=== PATIENT | male | born 1935 | race Two or more races ===

== ENCOUNTER 2017-04-11 13:08 | Inpatient (IN) | payer MEDICARE, MEDICAID ==
[~2017-04-11] VITALS: Ht 170.2 cm; Wt 73.5 kg
[~2017-04-11 13:08] MED LIST: TRAMADOL HCL50 MG ORAL
--- NOTE | 2017-04-11 13:53 | Emergency Room Report ---
History of Present Illness General Chief Complaint: Multiple Trauma/Fall Source: Patient, Family Member Present Illness HPI Patient fell a week ago. He was getting up and he thinks he might have passed out, though he remembers being caught in the sheets. He fell against a dresser. He hit his left flank and lower chest. He has bruising there and has had pain. The pain is 5/10 mainly when he was lifting things or twisting about. He's not taking any medication for this. He denies any cough, hemoptysis, dyspnea, hematuria or change in bowels. He denies fever. No headache. No palpitations, chest pain. Unknown prior cardiac disease. Not taking any medication at this time. BPH. Allergies: Coded Allergies: No Known Allergies (Verified Allergy, Unknown, 01/04/07) Patient History Past Medical History: see triage record Social History: Denies: smoking Social History Narrative with daughter - Reviewed Nursing Documentation: PMH: Agreed, PSxH: Agreed Nursing Documentation-PMH Past Medical History: No History, Except For Hx Hypertension: Yes Review of Systems All Other Systems: negative except mentioned in HPI Physical Exam Vital Signs Date Time Temp Pulse Resp B/P (MAP) Pulse Ox O2 Delivery O2 Flow Rate FiO2 04/11/17 13:19 98.6 60 16 140/72 97 Room Air Sp02 EP Interpretation: reviewed, normal General Appearance: well appearing, no apparent distress, GCS 15 Head: normocephalic, atraumatic Eyes: bilateral eye normal inspection ENT: moist mucus membranes Neck: full range of motion, supple, no bony tend Respiratory: lungs clear, normal breath sounds, other - posterior chest tenderness over site of ecchymoses Cardiovascular #1: other - regularly irregular rhythm Cardiovascular #2: 2+ radial (R) Gastrointestinal: normal inspection, normal bowel sounds, non tender, no mass, non-distended Genitourinary: CVA tenderness (L) Musculoskeletal: back normal - except for area of lateral chest, gait/station normal, normal range of motion Neurologic: alert, oriented x3, grossly normal Psychiatric: mood/affect normal Skin: warm/dry, other - ecchymoses L lower back/lateral ribs Medical Decision Making Diagnostic Impression: Primary Impression: Multiple rib fractures Qualified Codes: S22.42XA - Multiple fractures of ribs, left side, initial encounter for closed fracture Additional Impressions: Pulmonary contusion Qualified Codes: S27.321A - Contusion of lung, unilateral, initial encounter Bigeminy ER Course Patient presents with the left flank bruise after a fall. It's possibly a syncopal episode at that time. He states pain is mainly when he moves about. The patient needs to have evaluation for syncope and in addition to that will have a CT of his chest and abdomen to exclude any renal contusions or fractures. EKG, CT chest abdomen and pelvis will be performed. Also labs will be obtained and urinalysis. Patient declines pain medicine. EKG with bigeminy and no acute changes. The underlying heart rate is 56 with PVCs is 64. CT with fractures ribs 9-12 with pneumonitis L. Discussed with [facility]. Agreed that could stay here (Dr. Rehman). Needs observation for pulmonary contusion and bigemini. Antibiotics begun. Admit tele Dr. Multani. Laboratory Tests Test 04/11/17 14:20 White Blood Count 5.1 K/UL (4.8-10.8) Red Blood Count 3.78 M/UL (4.70-6.10) L Hemoglobin 11.6 G/DL (14.2-18.0) L Hematocrit 35.2 % (42.0-52.0) L Mean Corpuscular Volume 93 FL (80-99) Mean Corpuscular Hemoglobin 30.5 PG (27.0-31.0) Mean Corpuscular Hemoglobin Concent 32.8 G/DL (32.0-36.0) Red Cell Distribution Width 12.9 % (11.6-14.8) Platelet Count 186 K/UL (150-450) Mean Platelet Volume 6.4 FL (6.5-10.1) L Neutrophils (%) (Auto) 51.3 % (45.0-75.0) Lymphocytes (%) (Auto) 31.4 % (20.0-45.0) Monocytes (%) (Auto) 13.4 % (1.0-10.0) H Eosinophils (%) (Auto) 2.5 % (0.0-3.0) Basophils (%) (Auto) 1.5 % (0.0-2.0) Prothrombin Time 11.6 SEC (9.30-11.50) H Prothrombin Time INR 1.1 (0.9-1.1) PTT 28 SEC (23-33) Urine Color Yellow Urine Appearance Clear Urine pH 7 (4.5-8.0) Urine Specific [place] 1.005 (1.005-1.035) Urine Protein Negative (NEGATIVE) Urine Glucose (UA) Negative (NEGATIVE) Urine Ketones Negative (NEGATIVE) Urine Occult Blood Negative (NEGATIVE) Urine Nitrite Negative (NEGATIVE) Urine Bilirubin Negative (NEGATIVE) Urine Urobilinogen Normal MG/DL (0.0-1.0) Urine Leukocyte Esterase 1+ (NEGATIVE) H Urine RBC 0-2 /HPF (0 - 0) H Urine WBC 2-4 /HPF (0 - 0) Urine Squamous Epithelial Cells Occasional /LPF Urine Bacteria Occasional /HPF (NONE) Sodium Level 132 mEQ/L (135-145) L Potassium Level 4.5 mEQ/L (3.4-4.9) Chloride Level 96 mEQ/L (98-107) L Carbon Dioxide Level 26 mEQ/L (20-30) Anion Gap 10 (5-15) Blood Urea Nitrogen 25 mg/dL (7-23) H Creatinine 1.2 mg/dL (0.7-1.2) Estimate Glomerular Filtration Rate mL/min (>60) Glucose Level 95 mg/dL (74-106) Calcium Level 8.7 mg/dL (8.6-10.2) Total Bilirubin 0.6 mg/dL (0.0-1.2) Aspartate Amino Transferase (AST) 17 U/L (5-40) Alanine Aminotransferase (ALT) 11 U/L (3-41) Alkaline Phosphatase 58 U/L (40-129) Total Protein 6.4 g/dL (6.6-8.7) L Albumin 3.8 g/dL (3.5-5.2) Globulin 2.6 g/dL Albumin/Globulin Ratio 1.4 (1.0-2.7) EKG Diagnostic Results Rate: bradycardiac Rhythm: other - bigemini - rate 64 ST Segments: other Rhythm Strip Diag. Results EP Interpretation: yes Rhythm: other Other Impression Bigeminy, rate of 64, no hyperacute changes. CT/MRI/US Diagnostic Results CT/MRI/US Diagnostic Results : Imaging Test Ordered: chest abd pelvis Impression fx rib 9-12 and pneumonitis vs contusion Status: improved Disposition: ADMITTED INPATIENT Condition: Serious Tyrone Oliver M.D. Apr 11, 2017 13:53
[2017-04-11 14:38] LABS: APPEARANCE,URINE CLEAR; KETONES,URINE NEGATIVE (NEGATIVE); LEUKOCYTE ESTERASE ,URINE 1+ (NEGATIVE); NITRITE,URINE NEGATIVE (NEGATIVE); PH,URINE 7 (4.5-8.0); PROTEIN,URINE NEGATIVE (NEGATIVE); UROBILINOGEN,URINE NORMAL MG/DL (0.0-1.0)
[2017-04-11 14:41] LABS: BASOPHILS % (AUTO) 1.5 % (0.0-2.0); EOSINOPHILS % (AUTO) 2.5 % (0.0-3.0); LYMPHOCYTES % (AUTO) 31.4 % (20.0-45.0); MEAN CORPUSCULAR HEMOGLOBIN 30.5 PG (27.0-31.0); MEAN CORPUSCULAR HGB CONC 32.8 G/DL (32.0-36.0); MEAN CORPUSCULAR VOLUME 93 FL (80-99); MEAN PLATELET VOLUME 6.4 FL (6.5-10.1); MONOCYTES % (AUTO) 13.4 % (1.0-10.0); NEUTROPHILS % (AUTO) 51.3 % (45.0-75.0); PLATELET COUNT 186 K/UL (150-450); RED BLOOD COUNT 3.78 M/UL (4.70-6.10); RED CELL DISTRIBUTION WIDTH 12.9 % (11.6-14.8); WHITE BLOOD COUNT 5.1 K/UL (4.8-10.8)
[2017-04-11 14:45] VITALS: BP 163/62
[2017-04-11 14:47] LABS: INR 1.1 (0.9-1.1); PROTHROMBIN TIME 11.6 SEC (9.30-11.50)
[2017-04-11 14:48] LABS: BACTERIA,URINE OCCASIONAL /HPF; RBC,URINE 0-2 /HPF (0 - 0); SQUAMOUS EPITHELIAL CELL,UR OCCASIONAL /LPF (NONE/OCC)
[2017-04-11 14:51] LABS: ALANINE AMINOTRANSFERASE 11 U/L (3-41); ALBUMIN/GLOBULIN RATIO 1.4 (1.0-2.7); ANION GAP 10 (5-15); ASPARTATE AMINO TRANSFERASE 17 U/L (5-40); CALCIUM 8.7 mg/dL (8.6-10.2); CARBON DIOXIDE 26 mEQ/L (20-30); CHLORIDE 96 mEQ/L (98-107); CREATININE 1.2 mg/dL (0.7-1.2); HEMOLYSIS 5; POTASSIUM 4.5 mEQ/L (3.4-4.9); SODIUM 132 mEQ/L (135-145); TOTAL PROTEIN 6.4 g/dL (6.6-8.7)
[2017-04-11 17:04] VITALS: BP 183/66
[2017-04-11] MEDS ORDERED: ASPIR 8181 MG ORAL (17:34)
[2017-04-11] MEDS ORDERED: OMEGA 3 FISH O1 EAC1 PO (17:34)
[2017-04-11] MEDS ORDERED: Mylanta II UD 30ml ORAL PRN (18:15)
[2017-04-11] MEDS ORDERED: Nitroglycerin Subl 0.4mg tab (Bottle Of 25) SL PRN (18:15)
[2017-04-11] MEDS ORDERED: LORazepam Inj 2mg/ml 1ml IV PRN (18:15)
[2017-04-11] MEDS ORDERED: Morphine Sulfate 2mg/ml Inj IVP PRN (18:15)
[2017-04-11] MEDS ORDERED: Miralax 17gm pkt ORAL PRN (18:15)
[2017-04-11] MEDS ORDERED: DuoNeb 0.5-3(2.5)mg/3ml neb HHN PRN (18:15)
[2017-04-11 19:32] VITALS: BP 144/49
[2017-04-11 20:15] VITALS: BP 147/75
[2017-04-11] MEDS: Heparin 5000 units/ml inj SUBQ SCH (22:05)
[2017-04-12 00:24] VITALS: BP 155/66
[2017-04-12 03:56] VITALS: BP 142/69
[2017-04-12 07:07] LABS: BASOPHILS % (AUTO) 1.2 % (0.0-2.0); EOSINOPHILS % (AUTO) 3.3 % (0.0-3.0); LYMPHOCYTES % (AUTO) 24.9 % (20.0-45.0); MEAN CORPUSCULAR HEMOGLOBIN 31.9 PG (27.0-31.0); MEAN CORPUSCULAR HGB CONC 34.3 G/DL (32.0-36.0); MEAN CORPUSCULAR VOLUME 93 FL (80-99); MEAN PLATELET VOLUME 7.7 FL (6.5-10.1); NEUTROPHILS % (AUTO) 59.7 % (45.0-75.0); PLATELET COUNT 178 K/UL (150-450); RED BLOOD COUNT 4.01 M/UL (4.70-6.10); RED CELL DISTRIBUTION WIDTH 12.6 % (11.6-14.8); WHITE BLOOD COUNT 5.3 K/UL (4.8-10.8)
[2017-04-12 07:17] LABS: INR 1.1 (0.9-1.1); PROTHROMBIN TIME 11.7 SEC (9.30-11.50)
[2017-04-12 07:35] LABS: ALANINE AMINOTRANSFERASE 10 U/L (3-41); ALBUMIN/GLOBULIN RATIO 1.5 (1.0-2.7); ANION GAP 10 (5-15); ASPARTATE AMINO TRANSFERASE 18 U/L (5-40); CALCIUM 9.2 mg/dL (8.6-10.2); CARBON DIOXIDE 28 mEQ/L (20-30); CHLORIDE 96 mEQ/L (98-107); CHOLESTEROL 193 mg/dL (< 200); CHOLESTEROL/HDL RATIO 2.5 (3.3-4.4); HEMOLYSIS 6; LDL CHOLESTEROL (CALC.) 108 mg/dL (60-99); POTASSIUM 4.3 mEQ/L (3.4-4.9); SODIUM 134 mEQ/L (135-145); TOTAL PROTEIN 6.8 g/dL (6.6-8.7)
[2017-04-12 07:59] VITALS: BP 153/80
[2017-04-12] MEDS: Heparin 5000 units/ml inj SUBQ SCH ×2 (08:59→21:25)
--- NOTE | 2017-04-12 11:03 | Diagnostic Imaging Report ---
Indication: Chest and abdominal pain. Trauma to the chest and abdomen. Technique: Continuous helical transaxial imaging of the chest, abdomen and pelvis was obtained from the lung bases to the pubic symphysis during intravenous contrast administration. Multiple phases of enhancement obtained. Coronal 2-D reformats were also obtained. Study obtained in a Siemens sensation [address] Total Dose length Product (DLP): [address] Dose Index Volume (CTDIvol): 0.15, 15.27, 13.69 mGy Comparison: None Findings: There are multiple rib fractures on the left side involving the 9 through 12 ribs posteriorly. There is a small amount of chest wall swelling. There is mild posterior basilar atelectasis. There is no consolidation, fluid or blood collection within the pleural space or pneumothorax. The lungs are clear. Aorta shows mild mural calcification. The mediastinum is clear. There is no evidence of a pericardial effusion. Small hiatal hernia noted. Solid organs including the liver, spleen, kidneys, pancreas appear unremarkable. There is no free fluid. There is no hydronephrosis. The bladder is mildly distended. The patient has likely had a previous transurethral prostate resection given the focal defect centrally within the prostate gland. Hypertrophied facets demonstrated within the thoracic and lumbar spine. Bones appear osteopenic. Impression: Multiple left-sided rib fractures. No deeper injury associated with this. Mild posterior basilar atelectasis Chronic disease Osteopenia Status post TURP. [facility] has communicated the preliminary results to the Emergency Department. Their findings are largely concordant with this report. The CT scanner at [facility] is accredited by the [employer] and the scans are performed using dose optimization techniques as appropriate to a performed exam including Automatic Exposure control.
[2017-04-12 11:26] VITALS: BP 143/55
--- NOTE | 2017-04-12 12:04 | History and Physical ---
History of Present Illness General Date patient seen: Apr 11, 2017 Reason for Hospitalization: Multiple Trauma/Fall Present Illness HPI 81 year old male with hx bph, brought in by paramedics with CC of intractable chest pain. He fell a week ago. He was getting up and he thinks he might have passed out. He fell against a dresser. He says bruising there and has had pain. The pain is 5/10 mealy when he was lifting things or twisting about.. He denies any cough, hemoptysis, dyspnea, hematuria or change in bowels. He was diagnosed to have multiple rib fracture. He also had arrhythmias on the monitor and admitted to telemetry for further work up. Allergies: Coded Allergies: No Known Allergies (Verified Allergy, Unknown, 01/04/07) Medication History Scheduled Aspirin* (Aspir 81*), 81 MG ORAL DAILY, (Reported) Parrish-3 Fatty Acids/Fish Oil (Parrish 3 Fish Oil Softgel), 1 EACH PO DAILY, ( Reported) Scheduled PRN Tramadol Hcl* (Ultram*), 50 MG ORAL Q6H PRN for For Pain Patient History Healthcare decision maker Resuscitation status Full Code Advanced Directive on File No Past Medical/Surgical History Past Medical/Surgical History: (1) BPH (benign prostatic hyperplasia) (2) S/P TURP Review of Systems All Other Systems: negative except mentioned in HPI Physical Exam General Appearance: WD/WN Lines, tubes and drains: peripheral Neck: non-tender, normal alignment Respiratory/Chest: chest wall non-tender, lungs clear, normal breath sounds Breasts: no masses Cardiovascular/Chest: normal peripheral pulses Abdomen: normal bowel sounds, non tender Genitourinary/Rectal: normal genital exam, normal rectal exam Extremities: normal range of motion, non-tender Skin Exam: normal pigmentation Neurologic: fashion coordinator II-XII grossly normal Lymphatic: anterior cervical Last 24 Hour Vital Signs Date Time Temp Pulse Resp B/P (MAP) Pulse Ox O2 Delivery O2 Flow Rate FiO2 04/12/17 11:26 97.9 58 20 143/55 100 Room Air 04/12/17 07:59 97.7 58 20 153/80 100 Room Air 04/12/17 07:40 61 16 Room Air 04/12/17 03:58 58 04/12/17 03:56 96.6 55 20 142/69 98 Room Air 04/12/17 00:24 97.3 59 16 155/66 100 Room Air 04/11/17 23:54 58 04/11/17 20:19 66 16 Room Air 04/11/17 20:15 97.3 63 20 147/75 98 Room Air 04/11/17 19:36 98.6 67 16 144/49 99 Room Air 67 04/11/17 19:32 98.6 67 16 144/49 99 Room Air 04/11/17 17:04 98.6 73 10 183/66 98 Room Air 04/11/17 14:45 98.6 64 22 163/62 98 Room Air 04/11/17 13:19 98.6 60 16 140/72 97 Room Air Intake and Output 04/12/17 04/13/17 19:00 07:00 Intake Total 240 ml Output Total 350 ml Balance -110 ml Intake Oral 240 ml Output Urine Total 350 ml Laboratory Tests Test 04/11/17 14:20 04/12/17 06:30 White Blood Count 5.1 K/UL (4.8-10.8) 5.3 K/UL (4.8-10.8) Red Blood Count 3.78 M/UL (4.70-6.10) L 4.01 M/UL (4.70-6.10) L Hemoglobin 11.6 G/DL (14.2-18.0) L 12.8 G/DL (14.2-18.0) L Hematocrit 35.2 % (42.0-52.0) L 37.3 % (42.0-52.0) L Mean Corpuscular Volume 93 FL (80-99) 93 FL (80-99) Mean Corpuscular Hemoglobin 30.5 PG (27.0-31.0) 31.9 PG (27.0-31.0) H Mean Corpuscular Hemoglobin Concent 32.8 G/DL (32.0-36.0) 34.3 G/DL (32.0-36.0) Red Cell Distribution Width 12.9 % (11.6-14.8) 12.6 % (11.6-14.8) Platelet Count 186 K/UL (150-450) 178 K/UL (150-450) Mean Platelet Volume 6.4 FL (6.5-10.1) L 7.7 FL (6.5-10.1) Neutrophils (%) (Auto) 51.3 % (45.0-75.0) 59.7 % (45.0-75.0) Lymphocytes (%) (Auto) 31.4 % (20.0-45.0) 24.9 % (20.0-45.0) Monocytes (%) (Auto) 13.4 % (1.0-10.0) H 11.0 % (1.0-10.0) H Eosinophils (%) (Auto) 2.5 % (0.0-3.0) 3.3 % (0.0-3.0) H Basophils (%) (Auto) 1.5 % (0.0-2.0) 1.2 % (0.0-2.0) Prothrombin Time 11.6 SEC (9.30-11.50) H 11.7 SEC (9.30-11.50) H Prothromb Time International Ratio 1.1 (0.9-1.1) 1.1 (0.9-1.1) Activated Partial Thromboplast Time 28 SEC (23-33) 30 SEC (23-33) Urine Color Yellow Urine Appearance Clear Urine pH 7 (4.5-8.0) Urine Specific [place] 1.005 (1.005-1.035) Urine Protein Negative (NEGATIVE) Urine Glucose (UA) Negative (NEGATIVE) Urine Ketones Negative (NEGATIVE) Urine Occult Blood Negative (NEGATIVE) Urine Nitrite Negative (NEGATIVE) Urine Bilirubin Negative (NEGATIVE) Urine Urobilinogen Normal MG/DL (0.0-1.0) Urine Leukocyte Esterase 1+ (NEGATIVE) H Urine RBC 0-2 /HPF (0 - 0) H Urine WBC 2-4 /HPF (0 - 0) Urine Squamous Epithelial Cells Occasional /LPF Urine Bacteria Occasional /HPF (NONE) Sodium Level 132 mEQ/L (135-145) L 134 mEQ/L (135-145) L Potassium Level 4.5 mEQ/L (3.4-4.9) 4.3 mEQ/L (3.4-4.9) Chloride Level 96 mEQ/L (98-107) L 96 mEQ/L (98-107) L Carbon Dioxide Level 26 mEQ/L (20-30) 28 mEQ/L (20-30) Anion Gap 10 (5-15) 10 (5-15) Blood Urea Nitrogen 25 mg/dL (7-23) H 19 mg/dL (7-23) Creatinine 1.2 mg/dL (0.7-1.2) 1.0 mg/dL (0.7-1.2) Estimat Glomerular Filtration Rate mL/min (>60) mL/min (>60) Glucose Level 95 mg/dL (74-106) 96 mg/dL (74-106) Calcium Level 8.7 mg/dL (8.6-10.2) 9.2 mg/dL (8.6-10.2) Total Bilirubin 0.6 mg/dL (0.0-1.2) 0.6 mg/dL (0.0-1.2) Aspartate Amino Transf (AST/SGOT) 17 U/L (5-40) 18 U/L (5-40) Alanine Aminotransferase (ALT/SGPT) 11 U/L (3-41) 10 U/L (3-41) Alkaline Phosphatase 58 U/L (40-129) 63 U/L (40-129) Total Protein 6.4 g/dL (6.6-8.7) L 6.8 g/dL (6.6-8.7) Albumin 3.8 g/dL (3.5-5.2) 4.1 g/dL (3.5-5.2) Globulin 2.6 g/dL 2.7 g/dL Albumin/Globulin Ratio 1.4 (1.0-2.7) 1.5 (1.0-2.7) Triglycerides Level 42 mg/dL (< 150) Cholesterol Level 193 mg/dL (< 200) LDL Cholesterol 108 mg/dL (60-99) H HDL Cholesterol 77 mg/dL (> 60) H Cholesterol/HDL Ratio 2.5 (3.3-4.4) L Thyroid Stimulating Hormone (TSH) 3.370 uIU/mL (0.300-4.500) Height (Feet): 5 Height (Inches): 7.00 Weight (Pounds): 162 Medications Current Medications Medications (Trade) Dose Ordered Sig/Tank Route PRN Reason Start Time Stop Time Status Last Admin Dose Admin Acetaminophen (Tylenol) 650 mg Q4H PRN ORAL fever 04/11/17 18:15 05/11/17 18:14 Al Hydroxide/Mg Hydroxide (Mylanta II) 30 ml Q6H PRN ORAL dyspepsia 04/11/17 18:15 05/11/17 18:14 Albuterol/ Ipratropium (DuoNeb 0.5-3(2.5)mg/3ml) 3 ml Q4H PRN HHN Shortness of Breath 04/11/17 18:15 04/16/17 18:14 Clonidine HCl (Catapres) 0.1 mg Q4H PRN ORAL For High Blood Pressure 04/11/17 18:15 05/11/17 18:14 Dextrose (Dextrose 50%) STAT PRN IV Hypoglycemia 04/11/17 18:15 05/11/17 18:14 Heparin Sodium (Porcine) (Heparin 5000 units/ml) 5,000 units EVERY 12 HOURS SUBQ 04/11/17 21:00 05/11/17 20:59 04/12/17 08:59 Lorazepam (Ativan 2mg/ml 1ml) 0.5 mg Q4H PRN IV For Anxiety 04/11/17 18:15 04/18/17 18:14 Morphine Sulfate (Morphine Sulfate) 1 mg Q4H PRN IVP For Pain 7-10 04/11/17 18:15 04/18/17 18:14 Nitroglycerin (Ntg) 0.4 mg Q5M X 3 DOSES PRN SL Prn Chest Pain 04/11/17 18:15 05/11/17 18:14 Ondansetron HCl (Zofran) 4 mg Q6H PRN IVP Nausea & Vomiting 04/11/17 18:15 05/11/17 18:14 Polyethylene Glycol (Miralax) 17 gm HSPRN PRN ORAL Constipation 04/11/17 18:15 05/11/17 18:14 Temazepam (Restoril) 15 mg HSPRN PRN ORAL Insomnia 04/11/17 18:15 04/18/17 18:14 Assessment/Plan Problem List: (1) Acute encephalopathy ICD Codes: G93.40 - Encephalopathy, unspecified SNOMED: 0616350 (2) Arrhythmia ICD Codes: I49.9 - Cardiac arrhythmia, unspecified SNOMED: 520472061 (3) Bigeminy ICD Codes: I49.9 - Cardiac arrhythmia, unspecified SNOMED: 49412703 (4) Multiple rib fractures ICD Codes: S22.49XA - Multiple fractures of ribs, unspecified side, initial encounter for closed fracture SNOMED: 8765103 Qualifiers: Qualified Codes: S22.42XA - Multiple fractures of ribs, left side, initial encounter for closed fracture (5) Pulmonary contusion ICD Codes: S27.329A - Contusion of lung, unspecified, initial encounter SNOMED: 602459544 Qualifiers: Qualified Codes: S27.321A - Contusion of lung, unilateral, initial encounter (6) BPH (benign prostatic hyperplasia) ICD Codes: N40.0 - Benign prostatic hyperplasia without lower urinary tract symptoms SNOMED: 071943941, 223036883 (7) S/P TURP ICD Codes: Z90.79 - Acquired absence of other genital organ(s) SNOMED: 67572134, 785572846 Assessment/Plan echo cardio evaluation doppler of carotid artery pt/ot symptomatic treatment MELANIE SALAS Apr 12, 2017 12:04
--- NOTE | 2017-04-12 12:10 | Pulmonology Progress Note ---
Assessment/Plan Problems: (1) Acute encephalopathy (2) Arrhythmia (3) Bigeminy (4) Multiple rib fractures (5) Pulmonary contusion (6) BPH (benign prostatic hyperplasia) (7) S/P TURP Assessment/Plan feeling better, cardio to see check echo serial ekg tropon neuro evaluation Subjective ROS Limited/Unobtainable: No Constitutional: Reports: no symptoms HEENT: Repors: no symptoms Respiratory: Reports: no symptoms Allergies: Coded Allergies: No Known Allergies (Verified Allergy, Unknown, 01/04/07) Objective Last 24 Hour Vital Signs Date Time Temp Pulse Resp B/P (MAP) Pulse Ox O2 Delivery O2 Flow Rate FiO2 04/12/17 11:26 97.9 58 20 143/55 100 Room Air 04/12/17 07:59 97.7 58 20 153/80 100 Room Air 04/12/17 07:40 61 16 Room Air 04/12/17 03:58 58 04/12/17 03:56 96.6 55 20 142/69 98 Room Air 04/12/17 00:24 97.3 59 16 155/66 100 Room Air 04/11/17 23:54 58 04/11/17 20:19 66 16 Room Air 04/11/17 20:15 97.3 63 20 147/75 98 Room Air 04/11/17 19:36 98.6 67 16 144/49 99 Room Air 67 04/11/17 19:32 98.6 67 16 144/49 99 Room Air 04/11/17 17:04 98.6 73 10 183/66 98 Room Air 04/11/17 14:45 98.6 64 22 163/62 98 Room Air 04/11/17 13:19 98.6 60 16 140/72 97 Room Air Intake and Output 04/12/17 04/13/17 19:00 07:00 Intake Total 240 ml Output Total 350 ml Balance -110 ml Intake Oral 240 ml Output Urine Total 350 ml General Appearance: WD/WN HEENT: normocephalic, mucous membranes moist Respiratory/Chest: lungs clear, normal breath sounds, chest wall tender Cardiovascular: normal rate, regularly irregular Abdomen: normal bowel sounds, soft, non tender Genitourinary: normal external genitalia Skin: no rash Laboratory Tests 04/11/17 14:20: White Blood Count 5.1, Red Blood Count 3.78L, Hemoglobin 11.6L, Hematocrit 35.2L , Mean Corpuscular Volume 93, Mean Corpuscular Hemoglobin 30.5, Mean Corpuscular Hemoglobin Concent 32.8, Red Cell Distribution Width 12.9, Platelet Count 186, Mean Platelet Volume 6.4L, Neutrophils (%) (Auto) 51.3, Lymphocytes ( %) (Auto) 31.4, Monocytes (%) (Auto) 13.4H, Eosinophils (%) (Auto) 2.5, Basophils (%) (Auto) 1.5, Prothrombin Time 11.6H, Prothromb Time International Ratio 1.1, Activated Partial Thromboplast Time 28, Urine Color Yellow, Urine Appearance Clear, Urine pH 7, Urine Specific [place] 1.005, Urine Protein Negative, Urine Glucose (UA) Negative, Urine Ketones Negative, Urine Occult Blood Negative, Urine Nitrite Negative, Urine Bilirubin Negative, Urine Urobilinogen Normal, Urine Leukocyte Esterase 1+H, Urine RBC 0-2H, Urine WBC 2-4 , Urine Squamous Epithelial Cells Occasional, Urine Bacteria Occasional, Sodium Level 132L, Potassium Level 4.5, Chloride Level 96L, Carbon Dioxide Level 26, Anion Gap 10, Blood Urea Nitrogen 25H, Creatinine 1.2, Estimat Glomerular Filtration Rate , Glucose Level 95, Calcium Level 8.7, Total Bilirubin 0.6, Aspartate Amino Transf (AST/SGOT) 17, Alanine Aminotransferase (ALT/SGPT) 11, Alkaline Phosphatase 58, Total Protein 6.4L, Albumin 3.8, Globulin 2.6, Albumin/ Globulin Ratio 1.4 04/12/17 06:30: White Blood Count 5.3, Red Blood Count 4.01L, Hemoglobin 12.8L, Hematocrit 37.3L , Mean Corpuscular Volume 93, Mean Corpuscular Hemoglobin 31.9H, Mean Corpuscular Hemoglobin Concent 34.3, Red Cell Distribution Width 12.6, Platelet Count 178, Mean Platelet Volume 7.7, Neutrophils (%) (Auto) 59.7, Lymphocytes (% ) (Auto) 24.9, Monocytes (%) (Auto) 11.0H, Eosinophils (%) (Auto) 3.3H, Basophils (%) (Auto) 1.2, Prothrombin Time 11.7H, Prothromb Time International Ratio 1.1, Activated Partial Thromboplast Time 30, Sodium Level 134L, Potassium Level 4.3, Chloride Level 96L, Carbon Dioxide Level 28, Anion Gap 10, Blood Urea Nitrogen 19, Creatinine 1.0, Estimat Glomerular Filtration Rate , Glucose Level 96, Calcium Level 9.2, Total Bilirubin 0.6, Aspartate Amino Transf (AST/ SGOT) 18, Alanine Aminotransferase (ALT/SGPT) 10, Alkaline Phosphatase 63, Total Protein 6.8, Albumin 4.1, Globulin 2.7, Albumin/Globulin Ratio 1.5, Triglycerides Level 42, Cholesterol Level 193, LDL Cholesterol 108H, HDL Cholesterol 77H, Cholesterol/HDL Ratio 2.5L, Thyroid Stimulating Hormone (TSH) 3.370 Current Medications Medications (Trade) Dose Ordered Sig/Tank Route PRN Reason Start Time Stop Time Status Last Admin Dose Admin Acetaminophen (Tylenol) 650 mg Q4H PRN ORAL fever 04/11/17 18:15 05/11/17 18:14 Al Hydroxide/Mg Hydroxide (Mylanta II) 30 ml Q6H PRN ORAL dyspepsia 04/11/17 18:15 05/11/17 18:14 Albuterol/ Ipratropium (DuoNeb 0.5-3(2.5)mg/3ml) 3 ml Q4H PRN HHN Shortness of Breath 04/11/17 18:15 04/16/17 18:14 Clonidine HCl (Catapres) 0.1 mg Q4H PRN ORAL For High Blood Pressure 04/11/17 18:15 05/11/17 18:14 Dextrose (Dextrose 50%) STAT PRN IV Hypoglycemia 04/11/17 18:15 05/11/17 18:14 Heparin Sodium (Porcine) (Heparin 5000 units/ml) 5,000 units EVERY 12 HOURS SUBQ 04/11/17 21:00 05/11/17 20:59 04/12/17 08:59 Lorazepam (Ativan 2mg/ml 1ml) 0.5 mg Q4H PRN IV For Anxiety 04/11/17 18:15 04/18/17 18:14 Morphine Sulfate (Morphine Sulfate) 1 mg Q4H PRN IVP For Pain 7-10 04/11/17 18:15 04/18/17 18:14 Nitroglycerin (Ntg) 0.4 mg Q5M X 3 DOSES PRN SL Prn Chest Pain 04/11/17 18:15 05/11/17 18:14 Ondansetron HCl (Zofran) 4 mg Q6H PRN IVP Nausea & Vomiting 04/11/17 18:15 05/11/17 18:14 Polyethylene Glycol (Miralax) 17 gm HSPRN PRN ORAL Constipation 04/11/17 18:15 05/11/17 18:14 Temazepam (Restoril) 15 mg HSPRN PRN ORAL Insomnia 04/11/17 18:15 04/18/17 18:14 MELANIE SALAS Apr 12, 2017 12:10
[2017-04-12 15:42] VITALS: BP 137/53
--- NOTE | 2017-04-12 16:00 | Cardiology Progress Note ---
Assessment/Plan Assessment/Plan [id number] Objective Last 24 Hour Vital Signs Date Time Temp Pulse Resp B/P (MAP) Pulse Ox O2 Delivery O2 Flow Rate FiO2 04/12/17 15:42 96.3 61 20 137/53 98 Room Air 04/12/17 12:00 65 04/12/17 11:26 97.9 58 20 143/55 100 Room Air 04/12/17 07:59 97.7 58 20 153/80 100 Room Air 04/12/17 07:40 61 16 Room Air 04/12/17 03:58 58 04/12/17 03:56 96.6 55 20 142/69 98 Room Air 04/12/17 00:24 97.3 59 16 155/66 100 Room Air 04/11/17 23:54 58 04/11/17 20:19 66 16 Room Air 04/11/17 20:15 97.3 63 20 147/75 98 Room Air 04/11/17 19:36 98.6 67 16 144/49 99 Room Air 67 04/11/17 19:32 98.6 67 16 144/49 99 Room Air 04/11/17 17:04 98.6 73 10 183/66 98 Room Air Intake and Output 04/12/17 04/13/17 19:00 07:00 Intake Total 510 ml Output Total 350 ml Balance 160 ml Intake Oral 510 ml Output Urine Total 350 ml Laboratory Tests Test 04/12/17 06:30 White Blood Count 5.3 K/UL (4.8-10.8) Red Blood Count 4.01 M/UL (4.70-6.10) L Hemoglobin 12.8 G/DL (14.2-18.0) L Hematocrit 37.3 % (42.0-52.0) L Mean Corpuscular Volume 93 FL (80-99) Mean Corpuscular Hemoglobin 31.9 PG (27.0-31.0) H Mean Corpuscular Hemoglobin Concent 34.3 G/DL (32.0-36.0) Red Cell Distribution Width 12.6 % (11.6-14.8) Platelet Count 178 K/UL (150-450) Mean Platelet Volume 7.7 FL (6.5-10.1) Neutrophils (%) (Auto) 59.7 % (45.0-75.0) Lymphocytes (%) (Auto) 24.9 % (20.0-45.0) Monocytes (%) (Auto) 11.0 % (1.0-10.0) H Eosinophils (%) (Auto) 3.3 % (0.0-3.0) H Basophils (%) (Auto) 1.2 % (0.0-2.0) Prothrombin Time 11.7 SEC (9.30-11.50) H Prothromb Time International Ratio 1.1 (0.9-1.1) Activated Partial Thromboplast Time 30 SEC (23-33) Sodium Level 134 mEQ/L (135-145) L Potassium Level 4.3 mEQ/L (3.4-4.9) Chloride Level 96 mEQ/L (98-107) L Carbon Dioxide Level 28 mEQ/L (20-30) Anion Gap 10 (5-15) Blood Urea Nitrogen 19 mg/dL (7-23) Creatinine 1.0 mg/dL (0.7-1.2) Estimat Glomerular Filtration Rate mL/min (>60) Glucose Level 96 mg/dL (74-106) Calcium Level 9.2 mg/dL (8.6-10.2) Total Bilirubin 0.6 mg/dL (0.0-1.2) Aspartate Amino Transf (AST/SGOT) 18 U/L (5-40) Alanine Aminotransferase (ALT/SGPT) 10 U/L (3-41) Alkaline Phosphatase 63 U/L (40-129) Total Protein 6.8 g/dL (6.6-8.7) Albumin 4.1 g/dL (3.5-5.2) Globulin 2.7 g/dL Albumin/Globulin Ratio 1.5 (1.0-2.7) Triglycerides Level 42 mg/dL (< 150) Cholesterol Level 193 mg/dL (< 200) LDL Cholesterol 108 mg/dL (60-99) H HDL Cholesterol 77 mg/dL (> 60) H Cholesterol/HDL Ratio 2.5 (3.3-4.4) L Thyroid Stimulating Hormone (TSH) 3.370 uIU/mL (0.300-4.500) BRANDEE SIERRA Apr 12, 2017 16:00
--- NOTE | 2017-04-12 18:42 | Cardiology Report ---
APPROVED REPORT EXAM: Two-dimensional and M-mode echocardiogram with Doppler and color Doppler. INDICATION LV function M-Mode DIMENSIONS IVSd1.4 (0.7-1.1cm)Left Atrium (MM)3.6 (1.6-4.0cm) LVDd5.4 (3.5-5.6cm)Aortic Root3.6 (2.0-3.7cm) PWd1.3 (0.7-1.1cm)Aortic Cusp Exc.1.9 (1.5-2.0cm) LVDs3.8 (2.5-4.0cm) PWs2.2 cm Technically difficult study due to poor acoustical windows. Normal left ventricular chamber size. Apical hypokinesis otherwise normal wall motion for remaining segments to extent visualized. Left ventricular ejection fraction estimated to be 55 %. Study quality precludes accurate assessment of regional wall motion. Mild left ventricular hypertrophy. Anterior Echo-free space, may be due to pericardial fat or effusion. Mild bi-atrial enlargement. Right ventricular chamber size is within normal limits. Focal aortic valve sclerosis with adequate cusp excursion. Thickened mitral valve leaflets with normal excursion. Mitral annulus and aortic root calcification. Pulmonic valve not well visualized. Normal tricuspid valve structure. IVC at normal size with physiologic collapse. A color flow and spectral Doppler study was performed and revealed: Trace aortic regurgitation. Mild mitral regurgitation. Mitral diastolic velocities suggest reduced left ventricular relaxation c/w mild LV diastolic dysfunction (Grade I). Trace to mild tricuspid regurgitation. Tricuspid systolic velocities suggests peak right ventricular systolic pressure of 34 mmHg.
[2017-04-12 20:00] VITALS: BP 125/61
[2017-04-13] VITALS: BP 135/62
[2017-04-13 04:00] VITALS: BP 126/65
[2017-04-13 07:07] LABS: PROTHROMBIN TIME 10.9 SEC (9.30-11.50)
[2017-04-13 07:17] LABS: MEAN CORPUSCULAR HEMOGLOBIN 31.8 PG (27.0-31.0); MEAN CORPUSCULAR HGB CONC 34.1 G/DL (32.0-36.0); MEAN CORPUSCULAR VOLUME 93 FL (80-99); MEAN PLATELET VOLUME 7.5 FL (6.5-10.1); PLATELET COUNT 179 K/UL (150-450); RED CELL DISTRIBUTION WIDTH 12.8 % (11.6-14.8); WHITE BLOOD COUNT 4.2 K/UL (4.8-10.8)
[2017-04-13 07:35] LABS: LACTATE DEHYDROGENASE 169 U/L (135-230)
[2017-04-13 08:00] VITALS: BP 131/76
[2017-04-13 08:03] LABS: HEMOLYSIS 0; IRON 83 ug/dL (59-158); TOTAL IRON BINDING CAPACITY 248 ug/dL (250-400)
[2017-04-13] MEDS: Heparin 5000 units/ml inj SUBQ SCH (08:20)
--- NOTE | 2017-04-13 08:31 | Consultation ---
DATE OF CONSULTATION: 04/12/2017 CARDIOLOGY CONSULTATION CONSULTING PHYSICIAN: Walter Chapman M.D. REFERRING PHYSICIAN: Jaylon Multani M.D. Attending Physician: 00:15 HISTORY OF PRESENT ILLNESS: This is an elderly gentleman who came into the hospital yesterday. The history is obtained from the patient through his family members who speak Wolof. Apparently, a month ago, he fell at his daughter's house, but he has been having persistent pain since then, so finally family brought him to the emergency room. He told the emergency room physician that he fell a week ago, states he was getting up and and he thinks he may have passed out. He fell against a dresser. His left flank and lower chest were hurting. He states he has a bruise there and he has been having pain since then. He has been taking some Motrin to see if this would help him, but since the pain persisted, the family eventually decided to bring the patient to the hospital. According to the patient's daughter who tells me that the patient actually confirmed the patient did fall 1 month ago and it was not 1 week ago that he fell and that he was trying to get out of bed and his foot got caught into the blanket and that is the reason why he fell. There was no loss of consciousness according to her. PAST MEDICAL HISTORY: Positive for some at [facility] that indicate he has prostatic enlargement, for which he underwent transurethral prostatic resection by Dr. Ho. He was seen by a doctor whose name he is unsure about. His past medical history is negative for diabetes or high blood pressure. He has had high cholesterol many years ago. No history of heart attack. No cancer. No stroke. No hepatitis or tuberculosis. No asthma or emphysema. No ulcers. He does have a history of kidney stones. No liver problems. No thyroid problems. No anemia. He does have prostate problems as mentioned above. ALLERGIES: He is not allergic to any medication. SOCIAL HISTORY: He does not smoke or drink or use drugs. He used to work in a farm. REVIEW OF SYSTEMS: Gastrointestinal: He is basically constipated at times and occasionally has some bloody stools when he strains. Genitourinary: Negative, although he uses medications . Pulmonary: Negative. Constitutional: He denies. Neurological: Otherwise unremarkable. PHYSICAL EXAMINATION: GENERAL: Physical exam shows him to be an elderly gentleman, in no apparent respiratory distress. NECK: Supple. No jugular venous distention. No abdominojugular reflux noted. LUNGS: Clear to auscultation and percussion. CARDIAC: S1 is normal. S2 is normal. Regular rate and rhythm. No heaves, thrills, or gallops noted. ABDOMEN: Soft and nontender. No hepatosplenomegaly. No masses. EXTREMITIES: There is no edema. MUSCULOSKELETAL: There is no real CVA tenderness or spinal tenderness. There are some scars noted in the left flank area, which they call bruising. NEUROLOGICAL: He is awake, alert, responsive, in no apparent distress. LABORATORY AND DIAGNOSTIC DATA: Laboratory values, white count of 5.3, hemoglobin 12.8, and platelet count of 178,000. Sodium is 134, potassium 4.3, chloride 96, bicarbonate 28, BUN 19, creatinine 1.0, and glucose of 96. LDL of 108, HDL of 77, and total cholesterol of 193. TSH of 3.37. Coags, INR is 1.1 and a PTT of 30. Urinalysis is fairly unremarkable. CT scan of the chest, abdomen, and pelvis had been performed that basically show multiple left-sided rib fractures, no deeper injury associated with this, mild posterior basal atelectasis, chronic disease, osteopenia, status post TURP, no consolidation in the lungs, no fluid or blood collection within the pleural space or pneumothorax, and lungs are otherwise clear. The telemetry data shows sinus rhythm with bigeminal premature ventricular complexes, no real significant ST or T-wave abnormalities. Telemetry data shows sinus rhythm with occasional premature ventricular contractions, sinus rate as low as 76. ASSESSMENT: 1. Non-syncopal fall. 2. Left-sided multiple rib fractures. 3. Osteopenia. 4. History of hyperlipidemia, but mainly with HDL cholesterol. Dr. Multani, this patient was seen in cardiac consultation. The patient is doing rather well at the present time. The history was obtained again from the family, who does not indicate syncopal episode, rather a non-syncopal fall related to his foot getting caught. He does have several rib fractures. There is no other significant abnormality noted on the CT scan. His vital signs appeared to be stable with blood pressure as low as 137/53 and as high as 153/80. I see no need for any further testing at this time, although he has had an echocardiogram that showed on preliminary report normal sinus rhythm. From my point of view, he does not need any further workup. He will require treatment of his multiple rib fractures, which is expected, basically too painful for several weeks and he may need to have nonsteroidals intermittently. I have discussed with the patient's family that nonsteroidals to not be used on a regular basis as side effects of GI bleeding and others may affect the kidneys. Intermittently, he may have to use the medications, but we may expect to have some time for healing before these pains resolve. Walter Chapman M.D. DR: MONIQUE JOB#: [id number] CC:
[2017-04-13 09:03] LABS: ERYTHROCYTE SEDIMENTATION RATE 26 MM/HR (0-30)
[2017-04-13 11:42] LABS: PATH BLOOD SMEAR/OMC SENT TO PATHOLOGIST; RETICULOCYTE COUNT 1.2 % (0.0-2.0)
[2017-04-13 12:00] VITALS: BP 134/53
[2017-04-13 12:33] LABS: BASOPHILS % (MANUAL) 1 % (0-2); EOSINOPHILS % (MANUAL) 1 % (0-3); LYMPHOCYTES % (MANUAL) 22 % (20-45); NEUTROPHILS % (MANUAL) 64 % (45-75); TOTAL CELLS COUNTED 100
[2017-04-13 12:34] LABS: BAND NEUTROPHILS % (MANUAL) 0 % (0-8); PLATELET ESTIMATE ADEQUATE; PLATELET MORPHOLOGY NORMAL
[2017-04-13 12:36] LABS: ANISOCYTOSIS 1+; POIKILOCYTOSIS 1+
[2017-04-13 12:37] LABS: ACANTHOCYTES 2+; SCHISTOCYTES 1+
--- NOTE | 2017-04-13 13:24 | Pulmonology Progress Note ---
Assessment/Plan Problems: (1) Acute encephalopathy (2) Arrhythmia (3) Bigeminy (4) Multiple rib fractures (5) Pulmonary contusion (6) BPH (benign prostatic hyperplasia) (7) S/P TURP Assessment/Plan feeling better, cardio note appreciated echo reviewed serial ekg tropon all negative dc home with close outpatient f/u Subjective ROS Limited/Unobtainable: No Allergies: Coded Allergies: No Known Allergies (Verified Allergy, Unknown, 01/04/07) Objective Last 24 Hour Vital Signs Date Time Temp Pulse Resp B/P (MAP) Pulse Ox O2 Delivery O2 Flow Rate FiO2 04/13/17 12:00 97.7 64 21 134/53 100 Room Air 04/13/17 08:00 97.2 58 20 131/76 100 Room Air 04/13/17 07:56 58 16 Room Air 21 04/13/17 04:00 97.0 55 20 126/65 95 Room Air 04/13/17 03:46 56 04/13/17 00:00 97.2 34 20 135/62 98 Room Air 04/12/17 23:15 69 04/12/17 20:00 97.7 53 20 125/61 97 Room Air 04/12/17 19:30 60 16 Room Air 21 04/12/17 19:10 58 04/12/17 17:49 65 04/12/17 15:42 96.3 61 20 137/53 98 Room Air Intake and Output 04/13/17 04/14/17 19:00 07:00 Intake Total 360 ml Balance 360 ml Intake Oral 360 ml General Appearance: WD/WN HEENT: normocephalic, anicteric Respiratory/Chest: chest wall non-tender, lungs clear, chest wall tender Cardiovascular: normal peripheral pulses, normal rate Abdomen: normal bowel sounds, soft, non tender Genitourinary: normal external genitalia Extremities: no cyanosis Skin: no rash Neurologic/Psychiatric: weeder II-XII grossly normal, abnormal gait Lymphatic: no neck adenopathy Laboratory Tests 04/13/17 04:55: White Blood Count 4.2L, Red Blood Count 3.80L, Hemoglobin 12.1L, Hematocrit 35.4L, Mean Corpuscular Volume 93, Mean Corpuscular Hemoglobin 31.8H, Mean Corpuscular Hemoglobin Concent 34.1, Red Cell Distribution Width 12.8, Platelet Count 179, Mean Platelet Volume 7.5, Neutrophils (%) (Auto) , Lymphocytes (%) ( Auto) , Monocytes (%) (Auto) , Eosinophils (%) (Auto) , Basophils (%) (Auto) , Differential Total Cells Counted 100, Neutrophils % (Manual) 64, Lymphocytes % ( Manual) 22, Monocytes % (Manual) 12H, Eosinophils % (Manual) 1, Basophils % ( Manual) 1, Band Neutrophils 0, Platelet Estimate Adequate, Platelet Morphology Normal, Giant Platelets , Poikilocytosis 1+, Anisocytosis 1+, Acanthocytes 2+, Schistocytes 1+, Erythrocyte Sedimentation Rate 26, Reticulocyte Count 1.2, Prothrombin Time 10.9, Prothromb Time International Ratio 1.0, Activated Partial Thromboplast Time 30, Iron Level 83, Total Iron Binding Capacity 248L, Percent Iron Saturation 33, Unsaturated Iron Binding 165, Lactate Dehydrogenase 169, Carcinoembryonic Antigen 3.7H, Vitamin B12 Level > 2000H, Folate [Pending] Current Medications Medications (Trade) Dose Ordered Sig/Tank Route PRN Reason Start Time Stop Time Status Last Admin Dose Admin Acetaminophen (Tylenol) 650 mg Q4H PRN ORAL fever 04/11/17 18:15 05/11/17 18:14 Al Hydroxide/Mg Hydroxide (Mylanta II) 30 ml Q6H PRN ORAL dyspepsia 04/11/17 18:15 05/11/17 18:14 Albuterol/ Ipratropium (DuoNeb 0.5-3(2.5)mg/3ml) 3 ml Q4H PRN HHN Shortness of Breath 04/11/17 18:15 04/16/17 18:14 Clonidine HCl (Catapres) 0.1 mg Q4H PRN ORAL For High Blood Pressure 04/11/17 18:15 05/11/17 18:14 Dextrose (Dextrose 50%) STAT PRN IV Hypoglycemia 04/11/17 18:15 05/11/17 18:14 Heparin Sodium (Porcine) (Heparin 5000 units/ml) 5,000 units EVERY 12 HOURS SUBQ 04/11/17 21:00 05/11/17 20:59 04/13/17 08:20 Lorazepam (Ativan 2mg/ml 1ml) 0.5 mg Q4H PRN IV For Anxiety 04/11/17 18:15 04/18/17 18:14 Morphine Sulfate (Morphine Sulfate) 1 mg Q4H PRN IVP For Pain 7-10 04/11/17 18:15 04/18/17 18:14 Nitroglycerin (Ntg) 0.4 mg Q5M X 3 DOSES PRN SL Prn Chest Pain 04/11/17 18:15 05/11/17 18:14 Ondansetron HCl (Zofran) 4 mg Q6H PRN IVP Nausea & Vomiting 04/11/17 18:15 05/11/17 18:14 Polyethylene Glycol (Miralax) 17 gm HSPRN PRN ORAL Constipation 04/11/17 18:15 05/11/17 18:14 Temazepam (Restoril) 15 mg HSPRN PRN ORAL Insomnia 04/11/17 18:15 04/18/17 18:14 MELANIE SALAS Apr 13, 2017 13:24
[2017-04-13 16:00] VITALS: BP 134/74
[2017-04-13] MEDS ORDERED: Pneumococcal Vaccine 25mcg/0.5ml IM ONE (16:00)
[2017-04-14 07:54] LABS: OTHERS PATHOLOGIST COMMENT
--- NOTE | 2017-04-14 14:48 | Diagnostic Imaging Report ---
APPROVED REPORT CPT Code: 24142 Vascular Symptoms Syncope Doppler Spectral Velocity Analysis RightLeft RIGHT SIDE: CCA/ECA - Imaging reveals no significant plaque in the common carotid and external carotid arteries. ICA - Imaging reveals irregular plaque in the internal carotid artery. The Doppler signal indicates the degree of stenosis is minimal (30%) in the internal carotid artery. VERTEBRAL - The vertebral artery is patent, without evidence of stenosis or steal. arteries. The Doppler spectral flow analysis indicates the degree of stenosis is mild (40%) in the common carotid artery, moderate (50%) in the internal carotid artery, and mild (40%) in the external carotid artery. VERTEBRAL - The vertebral artery is mildly calcified.
--- NOTE | 2017-04-14 16:15 | Discharge Summary ---
Discharge Summary Hospital Course Date of Admission Apr 11, 2017 at 17:38 Date of Discharge Apr 13, 2017 at 17:22 Admitting Diagnosis PULMONARY CONTUSIONS/ RIB FRACTURES YENNI Batista is a 81 year old male who was admitted on Apr 11, 2017 at 17:38 for Pulmonary Contusions/Rib Fractures Hospital Course [id number] Discharge Discharge Disposition Patient was discharged to Home with Home Health(06) Discharge Diagnoses: Barbara Mcclendon NP Apr 14, 2017 16:15
--- NOTE | 2017-04-15 06:00 | Discharge Summary 2 SIG ---
DATE OF ADMISSION: 04/11/2017 DATE OF DISCHARGE: 04/13/2017 ACCREDITED F[employer] MANAGER: Walter Chapman M.D. BRIEF HOSPITAL COURSE: The patient is an 81-year-old male with history of BPH, who was brought in by paramedics for complaints of intractable chest pain. The patient fell a week prior and when he was getting up, he thinks he had passed out. He fell against a dresser where he had bruising and had pain. The pain was 5/10 in intensity and worse when lifting or twisting. On evaluation at ED, EKG showed bigeminy with no acute changes. CT of the chest, abdomen, and pelvis showed multiple left rib fracture and osteopenia. He had arrhythmias on the monitor. He was then admitted to telemetry for acute encephalopathy, arrhythmia, and multiple rib fracture. He underwent cardiac evaluation. Telemetry data showed sinus rhythm with bigeminal premature ventricular complexes. No significant ST or T-wave abnormality. From history obtained, he did not indicate syncopal episode rather a non-syncopal fall related to his foot getting caught leading to his fall. However, no other significant abnormality was noted on CT. Echocardiogram done showed ejection fraction 55% with reduced left ventricular relaxation consistent with mild diastolic dysfunction. Carotid Duplex scan showed moderate plaque in internal carotid artery. He was given a physical therapy and the patient was eventually discharged home with home health. FINAL DIAGNOSES: 1. Acute encephalopathy. 2. Arrhythmia. 3. Bigeminy. 4. Multiple rib fracture. 5. Benign prostatic hypertrophy, status post transurethral resection of prostate. 6. Pulmonary contusion. 7. Osteopenia. 8. Non-syncopal fall. DISPOSITION: The patient was discharged home with home health. DISCHARGE MEDICATIONS: Refer to medication list. FOLLOWUP: The patient was advised to follow up with primary medical doctor in a week. ACTIVITY: As tolerated. Jaylon Multani M.D. I have been assigned to dictate discharge summary on this account and I was not involved in the patient's management. Barbara Mcclendon N.P. DR: Dae JOB#: [id number] CC: RICHIE
== END 2017-04-13 17:22 | disposition home health service (06) | DRG 183 ==
LOC: EMR 14:25 → 2E 17:38 → EDBEDREQ 18:11 → 2E 22:45
DX: S22.42XA Multiple fractures of ribs, left side, initial encounter for closed fracture (principal); G93.40 Encephalopathy, unspecified; S27.321A Contusion of lung, unilateral, initial encounter; S27.329A Contusion of lung, unspecified, initial encounter; W19.XXXA Unspecified fall, initial encounter; I49.9 Cardiac arrhythmia, unspecified; N40.0 Benign prostatic hyperplasia without lower urinary tract symptoms; R00.8 Other abnormalities of heart beat; M85.80 Other specified disorders of bone density and structure, unspecified site; E78.5 Hyperlipidemia, unspecified
CPT/HCPCS: 36415; 71260; 74177; 80053; 80061; 81003; 82378; 82607; 82746; 83540; 83550; 83615; 84443; 85007; 85025; 85044; 85060; 85610; 85651; 85730; 90732; 93005; 93306; 93880; 94664; 99285